=== PATIENT | male | born 1975 | race Two or more races ===

== ENCOUNTER 2023-05-13 21:57 | Emergency (ER) | payer OTHER ==
[~2023-05-13] VITALS: Ht 182.9 cm; Wt 89.4 kg
[2023-05-13] MEDS ORDERED: URSO FORTE500 MG PO (22:28)
== END 2023-05-13 23:48 | disposition home or self-care (01) ==
LOC: ER 21:57
DX: S61.216A Laceration without foreign body of right little finger without damage to nail, initial encounter (principal); W26.8XXA Contact with other sharp object(s), not elsewhere classified, initial encounter; Y93.9 Activity, unspecified; Y92.9 Unspecified place or not applicable; Y99.9 Unspecified external cause status